=== PATIENT | male | born 1980 | race Two or more races ===

== ENCOUNTER 2017-07-14 15:21 | Emergency (ER) | payer BC ==
[~2017-07-14] VITALS: Ht 172.7 cm; Wt 77.1 kg
[2017-07-14 15:21] VITALS: BP 120/76
[2017-07-14] MEDS ORDERED: KETOROLAC TROMETHAMINE INJ 60 MG/2 ML VIAL IM ONE ×2 (15:54→16:00)
== END 2017-07-14 16:25 | disposition home or self-care (01) ==
LOC: ER 15:23
DX: R07.89 Other chest pain (principal); R05 Cough
CPT/HCPCS: 93005; 96372; 99283; A4606; J1885; Z7610

== ENCOUNTER 2022-01-24 04:11 | Emergency (ER) | payer BC, OTHER ==
[~2022-01-24] VITALS: Ht 172.7 cm; Wt 72.6 kg
--- NOTE | 2022-01-24 04:33 | NUR ---
BIB FOR C/O HIVES ON HEAD AND NECK AREA STARTED 4 DAYS AGO. A.OX4. TOLERATING R/A WELL WITH NO SOB SATTING AT 98%. CONNECTED PT TO POX AND MONITOR. PT AMBULATORY WITH STEADY GAIT. SAFETY MEASURES IN PLACE.
--- NOTE | 2022-01-24 04:37 | NUR ---
DR. LAW BERMUDEZ AT PT'S BEDSIDE
[2022-01-24] MEDS ORDERED: diphenhydrAMINE HCL 50 MG CAPSULE ONE (04:44)
[2022-01-24] MEDS ORDERED: FAMO-131 PO (04:44)
[2022-01-24] MEDS ORDERED: CLIN300C12 PO (04:44)
[2022-01-24] MEDS ORDERED: predniSONE 20 MG TABLET ONE (04:44)
[2022-01-24] MEDS ORDERED: PRED50TA PO (04:44)
[2022-01-24] MEDS ORDERED: FAMOTIDINE (20 MG) 20 MG TABLET ONE (04:44)
[2022-01-24] MEDS ORDERED: predniSONE 10 MG TABLET PO ONE (05:00)
[2022-01-24] MEDS ORDERED: diphenhydrAMINE HCL 50 MG CAPSULE PO ONE (05:00)
[2022-01-24] MEDS ORDERED: FAMOTIDINE (20 MG) 20 MG TABLET PO ONE (05:00)
[2022-01-24 05:05] VITALS: BP 127/91
--- NOTE | 2022-01-24 05:05 | NUR ---
Patient discharged to home in stable condition.RX Written and verbal after care instructions given. Patient verbalizes understanding of instruction. PT ambulatory with a steady gait
== END 2022-01-24 05:06 | disposition home or self-care (01) ==
LOC: ER 04:16
DX: L50.9 Urticaria, unspecified (principal); F17.200 Nicotine dependence, unspecified, uncomplicated; Z79.899 Other long term (current) drug therapy
CPT/HCPCS: 99284; J7512 ×2; Q0163